=== PATIENT | male | born 1940 | race Caucasian/White ===

== ENCOUNTER 2020-09-24 13:23 | Emergency (ER) | payer MEDICARE ==
[~2020-09-24] VITALS: Ht 177.8 cm; Wt 72.6 kg
[~2020-09-24 13:23] MED LIST: AMANTADINE 100100 M1 PO; ARICEPT10 MG PO; ATIVAN1 MG PO; ATORVASTATIN CA40 MG PO; CLARITHROMYCIN500 MG PO; ESCITALOPRAM OX10 MG PO; FINASTERIDE5 MG PO; LEXAPRO 10 MG T10 M1 PO; LEXAPRO 10 MG T10 MG PO; LISINOPRIL-HCT1 EACH PO; NEUPRO1 EAC2 TD; PLAVIX 75 MG TA75 M1 PO; SINEMET 25-1001 EAC1 PO; SORINE 80 MG TA80 M1 PO; SORINE 80 MG TA80 MG PO
[2020-09-24] MEDS ORDERED: RYTARY ER 48.71 EACH PO (13:34)
[2020-09-24 14:57] LABS: ABSOLUTE BASOPHILS 0.1 thou/uL (0.0-0.2); ABSOLUTE EOSINOPHILS 0.1 thou/uL (0.0-0.7); ABSOLUTE LYMPHOCYTES 0.9 thou/uL (0.8-5.3); ABSOLUTE MONOCYTES 0.9 thou/uL (0.0-1.2); ABSOLUTE NEUTROPHILS 6.4 thou/uL (1.6-8.1); BASOPHILS 0.6 %; EOSINOPHILS 1.7 %; HEMATOCRIT 37.8 % (42.0-52.0); HEMOGLOBIN 12.5 gm/dL (14.0-18.0); LYMPHOCYTES 10.8 %; MCH 31.6 pg (26.0-34.0); MCHC 33.1 g/dL (28.0-37.0); MCV 95.4 fL (80.0-100.0); MONOCYTES 11.1 %; MPV 8.1 fl. (7.2-11.1); NUCLEATED RBCS 0 /100WBC; PLATELET COUNT* 240 thou/uL (150-400); POLYS 75.8 %; RBC 3.96 mil/uL (4.50-6.00); RDW-CV 15.2 % (10.5-14.5); WBC 8.4 thou/uL (4.0-11.0)
[2020-09-24 14:59] LABS: CALCIUM 8.3 mg/dL (8.5-10.1); CREATININE 0.9 mg/dL (0.6-1.3); POTASSIUM 3.8 mmol/L (3.5-5.1)
[2020-09-24 15:01] LABS: URINE BILIRUBIN NEGATIVE (Negative); URINE BLOOD NEGATIVE (Negative); URINE CLARITY CLEAR; URINE COLOR YELLOW; URINE GLUCOSE-RANDOM NEGATIVE (Negative); URINE KETONES TRACE (Negative); URINE LEUKOCYTES-REFLEX NEGATIVE (Negative); URINE NITRITE-REFLEX NEGATIVE (Negative); URINE PROTEIN TRACE (Negative); URINE SPECIFIC GRAVITY >= 1.030 (1.005-1.030); URINE UROBILINOGEN 0.2 E.U./dl (0.2-1.0)
[2020-09-24 15:02] LABS: PROTIME 10.7 Seconds (9.20-11.50)
[2020-09-24 15:04] LABS: ALBUMIN 3.8 g/dL (3.4-5.0); TOTAL BILIRUBIN 0.8 mg/dL (<0.1-1.0); TOTAL PROTEIN 7.2 g/dL (6.4-8.2)
[2020-09-24 15:29] VITALS: BP 122/66
== END 2020-09-24 15:30 | disposition home or self-care (01) ==
LOC: M.ERS 13:23
PROVIDERS: Physician Assistant
DX: S22.31XA Fracture of one rib, right side, initial encounter for closed fracture (principal); S51.811A Laceration without foreign body of right forearm, initial encounter; D64.9 Anemia, unspecified; J90 Pleural effusion, not elsewhere classified; Z79.899 Other long term (current) drug therapy; Z88.1 Allergy status to other antibiotic agents; W18.39XA Other fall on same level, initial encounter; Y93.89 Activity, other specified; Y92.89 Other specified places as the place of occurrence of the external cause; Y99.8 Other external cause status